=== PATIENT | female | born 1960 | race Caucasian/White ===

== ENCOUNTER 2019-02-03 05:49 | Emergency (ER) | payer OTHER ==
[~2019-02-03] VITALS: Ht 152.4 cm; Wt 95.3 kg
[2019-02-03 05:52] VITALS: Ht 152.4 cm; Wt 95.3 kg
[2019-02-03 08:43] VITALS: BP 115/55
== END 2019-02-03 08:43 | disposition home or self-care (01) ==
LOC: ED 05:49
DX: S43.004A Unspecified dislocation of right shoulder joint, initial encounter (principal); W18.30XA Fall on same level, unspecified, initial encounter; Y93.89 Activity, other specified; Y92.89 Other specified places as the place of occurrence of the external cause; Y99.8 Other external cause status
CPT/HCPCS: J1885; J2405; J3010; J3490; J7030; Q0092

== ENCOUNTER 2020-07-22 15:41 | Emergency (ER) | payer OTHER, SELFPAY ==
[~2020-07-22] VITALS: Ht 157.5 cm; Wt 99.8 kg
[2020-07-22 15:44] VITALS: Ht 157.5 cm; Wt 99.8 kg
[2020-07-22 17:10] LABS: BASOPHIL % 0.5 % (0-2); PLATELET COUNT 248 x10^3mcL (130-400)
[2020-07-22 17:18] LABS: CALCIUM 9.1 mg/dL (8.5-10.1); CARBON DIOXIDE 28.1 mmol/L (21-32); POTASSIUM SERUM 4.1 mmol/L (3.5-5.1)
[2020-07-22 17:22] LABS: ALBUMIN 3.5 g/dL (3.4-5.0); BILIRUBIN TOTAL 0.4 mg/dL (0.20-1.00); TOTAL PROTEIN, SERUM 7.1 g/dL (6.4-8.2)
[2020-07-22 19:55] VITALS: BP 117/53
== END 2020-07-22 19:55 | disposition home or self-care (01) ==
LOC: ED 15:41
PROVIDERS: Emergency Medicine
DX: U07.1 COVID-19 (principal)
CPT/HCPCS: 83880; 85378; Q0092; Q9967